=== PATIENT | female | born 1970 | race Two or more races ===

== ENCOUNTER 2025-03-25 04:54 | Emergency (ER) | payer OTHER, MEDICAID, SELFPAY ==
[2025-03-25 04:54] VITALS: BP 137/85; PULSE 74; RESP 20; TEMP 36.9; O2SAT 97
[2025-03-25 04:55] VITALS: BMI 29.6
--- NOTE | 2025-03-25 05:20 | XR_ITS ---
Examination: CT abdomen with intravenous contrast CT pelvis with intravenous contrast 2-D coronal reconstructions 2-D sagittal reconstructions Date and time of exam:March 25, 2025 0702 hours Comparison September 22, 2023 INDICATION: Left lower abdominal pain today, history acute diverticulitis distal descending colon on CT abdomen study September 22, 2023. CTDI: vol (mGy) 9.54 DLP: (mGycm) 535 Technique: Multiple axial sections of the abdomen and pelvis have been obtained. 64 slice high-resolution scanner used. 3 mm axial sections have been obtained, post intravenous injection 60 cc Isovue 370 2-D sagittal, coronal reconstructions obtained. Low dose protocols were performed. One or more of the following dose reduction techniques were used; automated exposure control, adjustment of the mA and/or KV according to patient size, use of iterative reconstruction technique. Findings: No intrahepatic biliary ductal dilatation No gallstones Spleen not enlarged No pancreatic or adrenal mass Mild renal parenchymal scar formation Aorta normal size Acute diverticulitis distal descending colon and rectosigmoid Mild free fluid in the pelvis No peridiverticular abscess No pericecal inflammatory change Urinary bladder intact Osseous structures intact IMPRESSION: Acute diverticulitis distal descending colon and rectosigmoid No peridiverticular abscess
--- NOTE | 2025-03-25 05:34 | PD.EDABDPN ---
ED Abdominal Pain RME/HPI General Chief Complaint: Abdominal Pain Stated complaint: ABD PAIN SINCE YESTERDAY Time seen by provider: 03/25/25 05:20 Arrival date/time: 03/25/25 04:54 54F with history of HTN, hysterectomy and diverticulitis presents to ED with 2 days of LLQ pain. Patient states this feels like her last diverticulitis flare. Patient denies dysuria, N/V and diarrhea. Some constipation. Limitations: no limitations Related Data Home Medications ?Medication ?Instructions ?Recorded ?Confirmed carvedilol 6.25 mg tablet 6.25 mg PO BID 01/02/24 01/02/24 ibuprofen 800 mg tablet 800 mg PO Q8H PRN Pain 01/02/24 01/02/24 Previous Rx's ?Medication ?Instructions ?Recorded ciprofloxacin HCl 500 mg tablet 500 mg PO BID 7 days #14 tabs 03/25/25 hydrocodone 5 mg-acetaminophen 325 1 tab PO BID PRN pain #8 tabs 03/25/25 mg tablet metronidazole 500 mg tablet 500 mg PO TID 7 days #21 tabs 03/25/25 Allergies Allergy/AdvReac Type Severity Reaction Status Date / Time aspirin Allergy Mild SWELLING Verified 03/25/25 04:55 Review of Systems Review of Systems Systems Reviewed: All systems reviewed, normal except as documented Constitutional Constitutional: Reports system reviewed and no additional complaints, except as documented, Denies fever(s) and Denies headache(s) ENT Ears, Nose, Mouth, and Throat: Denies disequilibrium and Denies headache(s) Cardiovascular Cardiovascular: Reports system reviewed and no additional complaints, except as documented, Denies chest pain and Denies dyspnea Respiratory Respiratory: Reports system reviewed and no additional complaints, except as documented, Denies cough and Denies dyspnea Gastrointestinal Gastrointestinal: Reports system reviewed and no additional complaints, except as documented, Reports as per HPI, Reports abdominal pain, Reports constipation, Denies nausea and Denies vomiting Neurologic Neurologic: Reports system reviewed and no additional complaints, except as documented, Denies confusion, Denies disequilibrium and Denies headache(s) Psychiatric Psychiatric: Denies confusion Past Medical History Past Medical History NEUROLOGIC: Negative Neurological Disorders or Seizures CARDIAC: Positive Cardiac Disorders and Hypertension; Negative Congestive Heart Failure RESPIRATORY: Negative Chronic Obstructive Pulmonary Disease (COPD) or Asthma GASTROINTESTINAL: Positive Gastrointestinal Disorders and Diverticulitis GENITOURINARY: Negative Genitourinary Disorders or Renal Disease REPRODUCTIVE: Positive Previous Pregnancies; Negative Pelvic Inflammatory Disease MUSCULOSKELETAL: Negative Musculoskeletal Disorders ENDOCRINE: Negative Endocrine Disorders, Diabetes Mellitus Type 1 or Diabetes Mellitus Type 2 HEMATOLOGIC: Positive Blood Disorders and Anemia; Negative Sickle Cell Disease OTHER HISTORY: Negative Hospitalization, Autoimmune Disease, Shingles, Blood Transfusions, Blood Transfusion Reaction, Anesthesia Reactions, MRSA, Clostridium Difficile or Cancer Family History FAMILY HISTORY: Positive Family Cardiac Disorders and Family Cancer; Negative Family Psychiatric Problems, Family Respiratory Disorders, Family Gastrointestinal Problems, Family Surgery or Family Anesthesia Reaction Surgical History SURGICAL: Positive Hysterectomy (01/05/2024); Negative Cardiac Surgery, Endocrine Surgery, Thyroidectomy, Ear Surgery or Abdominal Surgery Social History SMOKING STATUS: Never smoker SUBSTANCE USE: does not use ED Exam General Limitations: Present no limitations General appearance: Present alert and in no apparent distress Head Head exam: Present atraumatic Eye Eye exam: Present normal appearance, PERRL and EOMI ENT ENT exam: Present normal exam, normal oropharynx and mucous membranes moist Neck Neck exam: Present normal inspection, full ROM and trachea midline Chest Chest inspection: Present normal inspection and symmetric chest wall rise Respiratory Respiratory exam: Present normal lung sounds bilaterally Cardiovascular Cardiovascular exam: Present regular rate, normal rhythm and normal heart sounds Abdominal Exam Abdominal exam: Present soft and normal bowel sounds Abdominal tenderness: Present LLQ Extremities Exam Extremities exam: Present normal inspection and full ROM Back Exam Back exam: Present normal inspection and full ROM Neurological Exam Neurological exam: Present alert, oriented X3 and CN II-XII intact Psychiatric Psychiatric exam: Present normal affect and normal mood Skin Skin exam: Present warm, dry, intact and normal color Course Quality Measures none Orders Category Date Time Status CT Screening NOW Care 03/25/25 05:20 Completed Insert IV NOW Care 03/25/25 05:[address] abdomen pelvis w con Stat Exams 03/25/25 05:20 Completed CBC Stat Lab 03/25/25 05:46 Completed CMP [Comprehensive Metabolic Panel] Stat Lab 03/25/25 05:46 Completed Lipase Stat Lab 03/25/25 05:46 Completed Urinalysis, C/S if Indicated Stat Lab 03/25/25 05:46 Completed Morphine Inj Med 03/25/25 07:46 Discontinued 4 mg IVP X1 ONE Morphine Inj Med 03/25/25 05:20 Discontinued 5 mg IVP X1 ONE Ondansetron Inj [Zofran Inj] Med 03/25/25 05:20 Discontinued 4 mg IV X1 ONE Ondansetron Inj [Zofran Inj] Med 03/25/25 07:46 Discontinued 4 mg IV X1 ONE cefTRIAXone/D5w 1gm IV premix [Rocephin/D5w 1gm IV Med 03/25/25 07:46 Discontinued premix] 1 gm in 50 ml IV X1 Vital Signs Vital signs: Vital Signs Temperature 98.4 F 03/25/25 04:54 Pulse Rate 74 03/25/25 04:54 Respiratory Rate 20 03/25/25 04:54 Blood Pressure 137/85 H 03/25/25 04:54 Pulse Oximetry (%) 97 03/25/25 04:54 Oxygen Delivery Method Room Air 03/25/25 04:54 O2 at 97% on RA and WNLs Abdominal Pain MDM MDM Narrative MDM Narrative:: 54F with history of HTN, hysterectomy and diverticulitis presents to ED with 2 days of LLQ pain. Patient states this feels like her last diverticulitis flare. Patient denies dysuria, N/V and diarrhea. Some constipation. Physical exam reveals LLQ tenderness. Patient is afebrile, calm, and alert. Care signed out to colleague. Patient was eventually discharged with diverticulitis. Patient data External records reviewed:: [facility] previous records Clinical information provided by:: patient Social determinants that could affect healthcare access:: none Patient has the following chronic illnesses:: HTN, hysterectomy and diverticulitis How is presenting disease/condition affected by chronic disease/condition?: exacerbated by Evaluation data The following diagnostics were reviewed and interpreted by me:: lab results and radiology exam(s) Lab and/or radiology exams considered but not ordered:: ordered Interpretation Summary: above Medications / Prescriptions Medications or Prescriptions considered but not ordered:: ordered Medication administrations:: Medication Administration History Discontinued Medications Ceftriaxone Sodium/Dextrose (Rocephin/D5w 1gm Iv Premix) 1 gm in 50 mls @ 100 mls/hr IV X1 ONE Stop: 03/25/25 08:15 Last Infusion: 03/25/25 09:22 Dose: Infused Documented By: Admin: 03/25/25 08:31 Dose: 100 mls/hr Documented By: EDU Morphine Sulfate (Morphine Sulf Inj 10 Mg/Ml Vial) 5 mg IVP X1 ONE Stop: 03/25/25 05:21 Last Admin: 03/25/25 05:57 Dose: 5 mg Documented By: NIRAJ Morphine Sulfate (Morphine Sulf Inj 10 Mg/Ml Vial) 4 mg IVP X1 ONE Stop: 03/25/25 07:47 Last Admin: 03/25/25 08:40 Dose: 4 mg Documented By: MILA Ondansetron HCl (Ondansetron Inj 2 Mg/Ml Inj 2 Ml) 4 mg IV X1 ONE; Protocol Stop: 03/25/25 05:21 Last Admin: 03/25/25 05:58 Dose: 4 mg Documented By: EF Ondansetron HCl (Ondansetron Inj 2 Mg/Ml Inj 2 Ml) 4 mg IV X1 ONE; Protocol Stop: 03/25/25 07:47 Last Admin: 03/25/25 08:40 Dose: 4 mg Documented By: MILA above Consultations Consultation(s) initiated? (list below): No Diagnosis Differential diagnosis abdominal pain: abdominal pain, acute appendicitis, calculus of kidney, constipation, diverticulitis, endometriosis, gastroenteritis, pancreatitis and small bowel obstruction Most likely diagnosis given after review of the tests above:: diverticulitis Admission Indicated Admission indicated?: not indicated Admission Request Was there a request for admission?: No Disposition Plan Disposition Plan: Discharge Discharge Attestation Discharge Attestation: The patient and all family members were given an opportunity to ask questions and understood the discharge instructions. Discharge instructions specifically effects, indications for sooner follow up or return to the emergency department, and the expected course of current diagnosis. Patient condition: Stable Discharge Plan Plan Patient Disposition: HOME (Self Care) Discharge Disposition comment: Stable Patient condition on transfer: Stable Prescriptions/Referrals Prescriptions/Med Rec: New hydrocodone-acetaminophen 5-325 mg tablet 1 tab PO BID MDD 10 PRN (Reason: pain) Qty: 8 0RF ciprofloxacin HCl 500 mg tablet 500 mg PO BID 7 Days Qty: 14 0RF metronidazole 500 mg tablet 500 mg PO TID 7 Days Qty: 21 0RF No Action carvedilol 6.25 mg Tablet 6.25 mg PO BID Rx Instructions: must administer with a meal/food ibuprofen 800 mg Tablet 800 mg PO Q8H PRN (Reason: Pain) Referrals: Татьяна Weinstein MD [Primary Care Provider] - In 1 week Problem List Clinical Impression: Diverticulitis Patient/Caregiver Discharge Instructions Education Materials: ED Diverticulitis Additional Instructions: Please follow up with your primary care doctor in the next 24-48hrs for any worsening symptoms return here immediately Print Language: Chinese Stand Alone Forms: Stephanie Award Info., Work/School Release, Patient Portal Info Letter PA/BOILER ENGINEER Supervising Physician PA/BOILER ENGINEER Supervising Physician: Dr. carreon
[2025-03-25 05:54] LABS: Collection Type, Urine Clean Catch
[2025-03-25] MEDS: MORPHINE SULF INJ 10 MG/ML VIAL 5 MG IVP (05:57)
[2025-03-25] MEDS: ONDANSETRON INJ 2 MG/ML INJ 2 ML 4 MG IV ×2 (05:58→08:40)
[2025-03-25 06:06] LABS: Bilirubin,Urine Negative (Negative); Blood,Urine Negative (Negative); Clarity,Urine Clear (Clear/Hazy); Color,Urine Lt-Yellow (Lt Yel-Yel); Culture Indicated,Urine Not Indicated; Glucose, Urine Negative (Negative); Ketones,Urine Negative (Negative); Leukocyte Esterase,Urine Positive (Negative); Nitrite,Urine Negative (Negative); Protein,Urine Negative (Neg - Trace); RBC,Urine 1 /hpf (0-3); Specific Gravity,Urine 1.013 (1.001-1.035); Squamous Epithelial Cell,Urine < 1 /hpf (0-5); Urobilinogen,Urine Negative mg/dL (0.0-1.0); WBC,Urine 5 /hpf (0-5)
[2025-03-25 06:14] LABS: Basophils % (Auto) 0 % (0-2.5); Eosinophils # (Auto) 0.1 Thou/mm3 (0.0-0.5); Eosinophils % (Auto) 1 % (0-10); Hematocrit 36.7 % (36.0-46.0); Hemoglobin 12.9 g/dL (12.0-16.0); Immature Granulocytes % (Auto) 0 % (0-0); Immature Granulocytes Auto 0.02 Thou/mm3 (0.00-0.00); Lymphocytes # (Auto) 1.3 Thou/mm3 (1.0-4.8); Lymphocytes % (Auto) 19 % (10-50); Mean Corpuscular HGB Conc 35.1 g/dl (31.0-37.0); Mean Corpuscular Volume 83 fL (80-100); Monocytes # (Auto) 0.4 Thou/mm3 (0.0-0.8); Monocytes % (Auto) 6 % (0-12); Neutrophils % (Auto) 73 % (37-80); Nucleated Red Blood Cell % 0 /100 WBC (0); Platelet Count 202 Thou/mm3 (140-440); Red Blood Count 4.45 Miln/mm3 (4.00-5.20); White Blood Count 6.9 Thou/mm3 (3.6-11.0)
[2025-03-25 06:18] LABS: Alanine Aminotransferase 14 U/L (10-49); Albumin, Serum 4.1 gm/dL (3.5-5.0); Albumin/Globulin Ratio 1.5 (1.2-2.2); Alkaline Phosphatase 108 U/L (46-116); Anion Gap 9 (7-16); Aspartate Amino Transferase 20 U/L (0-34); BUN/Creatinine Ratio 17 Ratio (12-20); Bilirubin,Total 0.8 mg/dL (0.3-1.2); Blood Urea Nitrogen 12 mg/dL (9-23); Calcium 8.7 mg/dL (8.3-10.6); Calcium (Corrected) 8.7 mg/dL (8.5-10.1); Chloride 107 mMol/L (98-107); Creatinine (Component) 0.7 mg/dL (0.6-1.3); Estimated Creatinine Clearance 84.2 mL/min (>60); Globulin 2.8 gm/dL (2.3-3.5); Glucose 104 mg/dL (74-106); Lipase 36 U/L (12-53); Osmolality,Calculated 282 (275-295); Sodium 142 mMol/L (136-145); Total Protein 6.9 gm/dL (5.7-8.2); eGFR > 60 See Note
--- NOTE | 2025-03-25 07:18 | PC.NURSE ---
Received report from Raul BOWERS and assumed care of patient. Patient just returned from CT and resting in bed with at bedside. Patient sates pain is 8/10.
[2025-03-25 08:25] VITALS: BP 140/85; PULSE 71; RESP 16; TEMP 36.8; O2SAT 96
[2025-03-25] MEDS: cefTRIAXone/D5w 1gm IV premix 1 GM/50 ML BAG IV (08:31)
[2025-03-25] MEDS: MORPHINE SULF INJ 10 MG/ML VIAL 4 MG IVP (08:40)
== END 2025-03-25 09:35 | disposition home or self-care (01) ==
PROVIDERS: Physician Assistant; Emergency Provider Emergency Medicine; PCP Obstetrics & Gynecology
DX: K57.32 Diverticulitis of large intestine without perforation or abscess without bleeding (principal)
CPT/HCPCS: 36415; 74177; 80053; 81001; 83690; 85025; 96365; 96375; 96376; 99285; A4649; J0696; J2270; J2405; Q9967